=== PATIENT | male | born 1990 | race Caucasian/White ===

== ENCOUNTER 2018-11-28 19:01 | Inpatient (IN) | payer OTHER ==
[2018-11-28 20:21] VITALS: BMI 23.9
--- NOTE | 2018-11-28 22:56 | HP ---
COWS - Scale Resting Pulse: 0= NE 80 or Below Sweatin=Flushed/Facial Moisture Restless Observation: 1= Difficult to Sit Still Pupil Size: 1= Pupils >than Normal Bone or Joint Aches: 2= Severe Diffuse Aches Runny Nose/ Eye Tearin= Runny Nose/Eyes GI Upset > 30mins: 1= Stomach Cramp Tremor Observation: 2= Slight Tremor Visible Yawning Observation: 1= 1-2x During Session Anxiety or Irritability: 4=Extreme Anxiety Goose Flesh Skin: 3=Piloerection COWS Score: 19 CIWA Score Nausea/Vomitin Muscle Tremors: 4-Moderate,w/Arms Extend Anxiety: 3 Agitation: 3 Paroxysmal Sweats: 3 Orientation: 0-Oriented Tacttile Disturbances: 0-None Auditory Disturbances: 0-None Visual Disturbances: 2-Mild Sensitivity Headache: 3-Moderate CIWA-Ar Total Score: 20 - Admission Criteria [facility] Guidelines: Admission for Medically Managed Detox: Requires at least one of the followin. CIWA greater than 12 2. Seizures within the past 24 hours 3. Delirium tremens within the past 24 hours 4. Hallucinations within the past 24 hours 5. Acute intervention needed for co occurring medical disorder 6. Acute intervention needed for co occurring psychiatric disorder 7. Severe withdrawal that cannot be handled at a lower level of care (continued vomiting, continued diarrhea, abnormal vital signs) requiring intravenous medication and/or fluids 8. Admission ROS [facility] Chief Complaint: Alcohol and heroin withdrawal symptoms Allergies/Adverse Reactions: Allergies Allergy/AdvReac Type Severity Reaction Status Date / Time No Known Allergies Allergy Verified 11/28/18 20:11 History of Present Illness: 28 years old male with 15 years of alcohol and heroin dependence is seeking admission to detox. Patient has been to multiple detox, last at [facility]. He has medically history of X linked retinoschisis. He denies suiide attempt and suicidal ideation at this time. He reports intermittent blackouts and states that he had a blackout yesterday. Exam Limitations: Physical Impairment (legally blind in both eyes) - Ebola screening Have you traveled outside of the country in the last 21 days: No (N) Have you had contact with anyone from an Ebola affected area: No Do you have a fever: No - Review of Systems Constitutional: Chills, Malaise, Changes in sleep EENT: reports: Other (legally blind in both eyes) Respiratory: reports: No Symptoms reported Cardiac: reports: No Symptoms Reported GI: reports: Nausea, Poor Appetite, Poor Fluid Intake, Abdominal cramping : reports: No Symptoms Reported Musculoskeletal: reports: Back Pain Integumentary: reports: Dryness, Flushing Neuro: reports: Headache, Tremors Endocrine: reports: No Symptoms Reported Hematology: reports: No Symptoms Reported Psychiatric: reports: Mood/Affect Appropiate, Orientated x3 Other Systems: Reviewed and Negative Patient History - Patient Medical History Hx Anemia: No Hx Asthma: No Hx Chronic Obstructive Pulmonary Disease (COPD): No Hx Cancer: No Hx Cardiac Disorders: No Hx Congestive Heart Failure: No Hx Hypertension: No Hx Hypercholesterolemia: No Hx Pacemaker: No HX Cerebrovascular Accident: No Hx Seizures: No Hx Dementia: No Hx Diabetes: No Hx Gastrointestinal Disorders: No Hx Liver Disease: No Hx Genitourinary Disorders: No Hx Sexually Transmitted Disorders: No Hx Renal Disease (ESRD): No Hx Thyroid Disease: No Hx Human Immunodeficiency Virus (HIV): No (October 2018) Hx Hepatitis C: No Hx Depression: No Hx Suicide Attempt: No (Denies suicidal ideation at this time) Hx Bipolar Disorder: No Hx Schizophrenia: No - Patient Surgical History Past Surgical History: Yes Other Surgical History: EYE SURGERY 2003 & 2006 - PPD History Previous Implant?: Yes Documented Results: Negative w/o proof Implanted On Prior R Admission?: No PPD to be Administered?: Yes - Reproductive History Patient is a Female of Child Bearing Age (11 -55 yrs old): No (MALE) - Smoking Cessation Smoking history: Current every day smoker Have you smoked in the past 12 months: Yes Aproximately how many cigarettes per day: 20 Hx Chewing Tobacco Use: No Initiated information on smoking cessation: Yes 'Breaking Loose' booklet given: 11/28/18 - Substance & Tx. History Hx Alcohol Use: Yes Hx Substance Use: No Substance Use Type: Alcohol, Heroin Hx Substance Use Treatment: Yes ([facility]) - Substances abused Alcohol Substance route: Oral Frequency: Daily Amount used: 1/2 gallon of vodka/gin or sudhir Age of first use: 11 Date of last use: 11/27/18 Oxycontin Substance route: Oral Frequency: Daily Amount used: 10 (10mg)/day Age of first use: 16 Date of last use: 11/27/18 Family Disease History - Family Disease History Family History: Denies Admission Physical Exam [facility] - Vital Signs Vital Signs: Vital Signs - 24 hr 11/28/18 11/28/18 20:07 22:15 Temperature 97.0 F L 97.0 F L Pulse Rate 68 68 Respiratory 18 18 Rate Blood Pressure 106/66 106/66 - Physical General Appearance: Yes: Moderate Distress, Tremorous, Irritable, Anxious HEENTM: Yes: Within Normal Limits Respiratory: Yes: Lungs Clear, Normal Breath Sounds, No Respiratory Distress Neck: Yes: Supple Breast: Yes: Breast Exam Deferred Cardiology: Yes: Regular Rhythm, Regular Rate Abdominal: Yes: Normal Bowel Sounds Genitourinary: Yes: Within Normal Limits Back: Yes: Normal Inspection Musculoskeletal: Yes: Back pain Extremities: Yes: Tremors Neurological: Yes: Within Normal Limits Integumentary: Yes: Warm Lymphatic: Yes: Within Normal Limits Cleared for Admission [facility] - Detox or Rehab [facility] Level of Care: Medically Managed Detox Regimen/Protocol: Methadone/Librium Breathalyzer - Breathalyzer Breathalyzer: 0 Urine Drug Screen - Test Device Lot number: [id number] Expiration date: 08/16/20 - Control Is test valid?: Yes - Results Drug screen NEGATIVE: No Urine drug screen results: THC-Marijuana, MET-Methamphetamine, OXY-Oxycodone Inpatient Rehab Admission - Rehab Decision to Admit Inpatient rehab admission?: No
[2018-11-28] MEDS ORDERED: MAGNESIUM CITRATE 300 ML BOTTLE PO PRN (23:17)
[2018-11-28] MEDS ORDERED: MAG HYDROX/AL HYDROX/SIMETH 30 ML UNIT-DOSE CUP PO PRN (23:17)
[2018-11-28] MEDS ORDERED: chlordiazePOXIDE HCL 10 MG CAPSULE PO PRN (23:17)
[2018-11-28] MEDS ORDERED: MELATONIN 5 MG TABLETS PO PRN (23:17)
[2018-11-28] MEDS ORDERED: cloNIDine HCL 0.1 MG TABLET PO PRN (23:17)
[2018-11-28] MEDS ORDERED: MENTHOL/PHENOL 1 EACH UD MM PRN (23:17)
[2018-11-28] MEDS ORDERED: MAGNESIUM HYDROX 2400MG/30ML ORAL SUSPENSION 30 ML CUP PO PRN (23:17)
[2018-11-28] MEDS ORDERED: BISMUTH SUBSALICYLATE 524 MG/30 ML UD PO PRN (23:17)
[2018-11-28] MEDS ORDERED: METHADONE HCL 10 MG TABLET (FOR DETOX USE ONLY) PO ONE (23:17)
[2018-11-28] MEDS ORDERED: ACETAMINOPHEN 325 MG TABLET (FP) PO PRN ×2 (23:17)
[2018-11-28] MEDS ORDERED: IBUPROFEN 400 MG TABLET (FP) PO PRN (23:17)
[2018-11-29] MEDS: chlordiazePOXIDE HCL 25 MG CAPSULE PO SCH ×3 (00:20→12:42)
[2018-11-29] MEDS ORDERED: METHADONE HCL 10 MG TABLET PO ONE (00:54)
[2018-11-29] MEDS ORDERED: METHADONE HCL 5 MG TABLET (FOR DETOX USE ONLY) PO ONE (10:00)
[2018-11-29] MEDS: NICOTINE 14 MG/24 HOURS TOPICAL PATCH TD SCH (10:59)
[2018-11-29] MEDS: PRENATAL VITAMINS W/ FOLIC ACID TABLET (FP) PO SCH (11:01)
[2018-11-29] MEDS: NICOTINE POLACRILEX 4 MG GUM BUC PRN ×6 (11:03→23:55)
[2018-11-29 13:09] LABS: ALBUMIN 3.2 g/dl (3.4-5.0); BILIRUBIN,TOTAL 0.6 mg/dL (0.2-1); BLOOD UREA NITROGEN 13.9 mg/dL (7-18); CALCIUM 8.5 mg/dL (8.5-10.1); CREATININE 1.2 mg/dL (0.55-1.3); POTASSIUM 4.6 mmol/L (3.5-5.1); TOT PROT 5.5 g/dl (6.4-8.2)
[2018-11-29] MEDS: CLOTRIMAZOLE 1% CREAM 15 GM TUBE TP SCH ×3 (13:20→22:34)
[2018-11-29] MEDS ORDERED: LORazepam 0.5 MG TABLET PO PRN (13:33)
--- NOTE | 2018-11-29 13:41 | CONSULT ---
[facility] Psychiatric Consult - Data Date of interview: 11/29/18 Admission source: [facility] Identifying data: First admission to [facility] for this 28 y/o male self-referred for detoxification (alcohol, cannabis, heroin). Examined at [address] [place] [address]. Patient is single, a father of one, homeless, unemployed and supported on welfare. Substance Abuse History: Confirmed by the patient in this interview. Details in [facility] report as follows : Smoking history: Current every day smoker. Have you smoked in the past 12 months: Yes. Aproximately how many cigarettes per day: 20. Hx Chewing Tobacco Use: No. Initiated information on smoking cessation: Yes. 'Breaking Loose' booklet given: 11/28/18. - Substance & Tx. History. Hx Alcohol Use: Yes. Hx Substance Use: No. Substance Use Type: Alcohol, Heroin. Hx Substance Use Treatment: Yes ([facility]). - Substances abused. Alcohol. Substance route: Oral. Frequency: Daily. Amount used: 1/2 gallon of vodka/gin or sudhir. Age of first use: 11. Date of last use: 11/27/18. Oxycontin. Substance route: Oral. Frequency: Daily. Amount used: 10 (10mg)/day. Age of first use: 16. Date of last use: 11/27/18 Medical History: Patient is legally blind. Psychiatric History: No reported history of psychiatric hospitalizations. Mr Guerra admits to having relapsed after more than six months of sobriety. Patient sees a psychiatrist at the [facility] in [facility] (medicated with prozac ( dose not recalled ) + gabapentin 600 mg/tid + wellbutrin SR 150 mg/day + trazodone 100 mg/hs). Diagnosed with Antisocial Personality Disorder, CINDA and PTSD. Patient denies history of suicide attempts. Physical/Sexual Abuse/Trauma History: Patient denies history of abuse. Additional Comment: Urine drug screen results: THC-Marijuana, MET- Methamphetamine, OXY-Oxycodone. Noted. Mental Status Exam - Mental Status Exam Alert and Oriented to: Time, Place, Person Cognitive Function: Good Patient Appearance: Well Groomed Mood: Withdrawn, Hopeful Affect: Appropriate, Normal Range Patient Behavior: Fatigued, Cooperative Speech Pattern: Clear Voice Loudness: Normal Thought Process: Goal Oriented Thought Disorder: Not Present Hallucinations: Denies Suicidal Ideation: Denies Homicidal Ideation: Denies Insight/Judgement: Poor Sleep: Poorly, Difficulty falling asleep Appetite: Good Muscle strength/Tone: Normal Gait/Station: Normal Psychiatric Findings - Problem List ([place] 1, 2,3) (1) Alcohol use disorder Current Visit: Yes Status: Chronic (2) Cannabis use disorder, mild, abuse Current Visit: Yes Status: Chronic (3) Opioid use disorder Current Visit: Yes Status: Chronic (4) Nicotine dependence Current Visit: Yes Status: Chronic (5) Substance induced mood disorder Current Visit: Yes Status: Chronic (6) History of posttraumatic stress disorder (PTSD) Current Visit: Yes Status: Chronic (7) History of anxiety disorder Current Visit: Yes Status: Chronic (8) Insomnia Current Visit: Yes Status: Chronic - Initial Treatment Plan Initial Treatment Plan: Psychoeducation. Sleep hygiene. Detoxification. AA/NA meetings. Groups. Motivational counseling done in this session (attended by medical students /with patient's verbal permission). Support. Relapse prevention discussed with the patient. Medications : trazodone 100 mg po hs + gabapentin 300 mg po tid. Side effects/benefits discussed with patient. Mr Guerra declines to gat back on wellbutrin and fluoxetine. Made aware of risk of priapism. Verbal consent granted to MD. Toth.
[2018-11-29 13:49] LABS: HEMATOCRIT 37.9 % (35.4-49); HEMOGLOBIN 12.6 GM/dL (11.7-16.9); MCH 28.7 pg (25.7-33.7); MCHC 33.2 g/dl (32.0-35.9); MEAN CELL VOLUME 86.6 fl (80-96); MEAN PLT VOLUME 8.3 fl (7.5-11.1); PLATELET COUNT 186 K/MM3 (134-434); RBC 4.38 M/mm3 (4.00-5.60); RDW 15.4 % (11.9-15.9); WHITE BLOOD COUNT 7.5 K/mm3 (4.0-10.0)
--- NOTE | 2018-11-29 14:00 | PN ---
S CIWA - CIWA Score Nausea/Vomitin-Mild Nausea/No Vomiting Muscle Tremors: 3 Anxiety: 3 Agitation: 4-Moderately Restless Paroxysmal Sweats: 2 Orientation: 0-Oriented Tacttile Disturbances: 1-Very Mild Itch/Numbness Auditory Disturbances: 0-None Visual Disturbances: 0-None Headache: 1-Very Mild CIWA-Ar Total Score: 15 BHS COWS - Scale Resting Pulse: 0= [place] 80 or Below Sweatin= Chills/Flushing Restless Observation: 0= Sits Still Pupil Size: 1= Pupils >than Normal Bone or Joint Aches: 2= Severe Diffuse Aches Runny Nose/ Eye Tearin= Nasal Congestion GI Upset > 30mins: 2= Nausea/Diarrhea Tremor Observation of Outstretched Hands: 2= Slight Tremor Visible Yawning Observation: 1= 1-2x During Session Anxiety or Irritability: 1=Feels Anxious/Irritable Goose Flesh Skin: 3=Piloerection COWS Score: 14 S Progress Note (SOAP) Subjective: 28 years old male admitted on 11/28/18 for acute alcohol and opiate withdrawal sx management prefers Ativan as detox regimen "not doing well with labium" discontinue labium protocol begin Ativan detox regimen itchy groin area bilaterally puristic circular erythema patches spreading along groin bilaterally tinea corpus clotrimazole cream Objective: 11/29/18 14:28 Vital Signs Temperature 99.3 F 11/29/18 13:54 Pulse Rate 62 11/29/18 13:54 Respiratory Rate 18 11/29/18 13:54 Blood Pressure 119/72 11/29/18 13:54 O2 Sat by Pulse Oximetry (%) Laboratory Last Values WBC 7.5 K/mm3 (4.0-10.0) 11/29/18 07:30 RBC 4.38 M/mm3 (4.00-5.60) 11/29/18 07:30 Hgb 12.6 GM/dL (11.7-16.9) 11/29/18 07:30 Hct 37.9 % (35.4-49) 11/29/18 07:30 MCV 86.6 fl (80-96) 11/29/18 07:30 MCH 28.7 pg (25.7-33.7) 11/29/18 07:30 MCHC 33.2 g/dl (32.0-35.9) 11/29/18 07:30 RDW 15.4 % (11.9-15.9) 11/29/18 07:30 Plt Count 186 K/MM3 (134-434) 11/29/18 07:30 MPV 8.3 fl (7.5-11.1) 11/29/18 07:30 Sodium 143 mmol/L (136-145) 11/29/18 07:30 Potassium 4.6 mmol/L (3.5-5.1) 11/29/18 07:30 Chloride 107 mmol/L (98-107) 11/29/18 07:30 Carbon Dioxide 32 mmol/L (21-32) 11/29/18 07:30 Anion Gap 4 MMOL/L (8-16) L 11/29/18 07:30 BUN 13.9 mg/dL (7-18) 11/29/18 07:30 Creatinine 1.2 mg/dL (0.55-1.3) 11/29/18 07:30 Est GFR (CKD-EPI)AfAm 94.14 11/29/18 07:30 Est GFR (CKD-EPI)NonAf 81.23 11/29/18 07:30 Random Glucose 85 mg/dL (74-106) 11/29/18 07:30 Calcium 8.5 mg/dL (8.5-10.1) 11/29/18 07:30 Total Bilirubin 0.6 mg/dL (0.2-1) 11/29/18 07:30 AST 22 U/L (15-37) 11/29/18 07:30 ALT 33 U/L (13-61) 11/29/18 07:30 Alkaline Phosphatase 38 U/L (45-117) L 11/29/18 07:30 Total Protein 5.5 g/dl (6.4-8.2) L 11/29/18 07:30 Albumin 3.2 g/dl (3.4-5.0) L 11/29/18 07:30 RPR Titer Nonreactive (NONREACTIVE) 11/29/18 07:30 lab noted Assessment: 11/29/18 14:28 alcohol and opiate withdrawal sx Plan: continue ativan and methadone detox regimen
[2018-11-29] MEDS: hydrOXYzine HCL 25 MG TABLET (FP) PO PRN (15:11)
[2018-11-29] MEDS: LORazepam 0.5 MG TABLET PO SCH ×2 (16:53→22:03)
[2018-11-29] MEDS: traZODone HCL 100 MG TABLET (FP) PO SCH (22:03)
[2018-11-29] MEDS: THIAMINE HCL 100 MG TABLET (FP) PO SCH (22:03)
[2018-11-29] MEDS: GABAPENTIN 300 MG CAPSULE (FP) PO SCH (22:03)
[2018-11-30] MEDS: LORazepam 0.5 MG TABLET PO PRN ×3 (02:17→18:06)
[2018-11-30] MEDS: NICOTINE POLACRILEX 4 MG GUM BUC PRN ×7 (02:17→21:52)
[2018-11-30] MEDS ORDERED: chlordiazePOXIDE 5 MG CAPSULE PO SCH (05:00)
[2018-11-30] MEDS: GABAPENTIN 300 MG CAPSULE (FP) PO SCH ×3 (05:33→22:08)
[2018-11-30] MEDS: LORazepam 0.5 MG TABLET PO SCH ×3 (05:33→22:08)
[2018-11-30] MEDS: CLOTRIMAZOLE 1% CREAM 15 GM TUBE TP SCH ×3 (06:16→22:08)
[2018-11-30] MEDS ORDERED: METHADONE HCL 10 MG TABLET (FOR DETOX USE ONLY) PO ONE (10:00)
[2018-11-30] MEDS: METHOCARBAMOL 500 MG TABLET PO PRN ×2 (10:16→22:09)
[2018-11-30] MEDS: NICOTINE 14 MG/24 HOURS TOPICAL PATCH TD SCH (10:16)
[2018-11-30] MEDS: PRENATAL VITAMINS W/ FOLIC ACID TABLET (FP) PO SCH (10:16)
--- NOTE | 2018-11-30 12:12 | EKG ---
Test Reason : Blood Pressure : / mmHG Vent. Rate : 068 BPM Atrial Rate : 068 BPM P-R Int : 124 ms QRS Dur : 082 ms QT Int : 382 ms P-R-T Axes : -21 090 040 degrees QTc Int : 406 ms NORMAL SINUS RHYTHM RIGHTWARD AXIS BORDERLINE ECG NO PREVIOUS ECGS AVAILABLE Confirmed by EDVIN CALERO, KALEIGH ([id number]) on 11/30/2018 12:11:34 PM Referred By: Patricia Baugh Confirmed By:KALEIGH PARDO MD
--- NOTE | 2018-11-30 13:16 | PN ---
Ritu Progress Note Note: Psychiatry Attending's note : Met with patient. Noted as angry, hostile and argumentative. Firm limits set by this teletypewriter operator. Mr Guerra wants switch to wellbutrin (immediate release). Specifically requests to be on 75 mg po twice a day. Ordered : wellbutrin 75 mg po bid @ 7 AM + 1 PM. As per patient's preferred schedule. Side effects/benefits discussed.
--- NOTE | 2018-11-30 13:43 | PN ---
[facility] CIWA - CIWA Score Nausea/Vomitin-No Nausea/No Vomiting Muscle Tremors: None Anxiety: 5 Agitation: 4-Moderately Restless Paroxysmal Sweats: 3 Orientation: 0-Oriented Tacttile Disturbances: 3-Moderate Itch/Numb/Burn Auditory Disturbances: 0-None Visual Disturbances: 1-Very Mild Sensitivity Headache: 0-None Present CIWA-Ar Total Score: 16 BHS COWS - Scale Resting Pulse: 1= OR 81-100 Sweatin= Chills/Flushing Restless Observation: 1= Difficult to Sit Still Pupil Size: 0= Normal to Room Light Bone or Joint Aches: 2= Severe Diffuse Aches Runny Nose/ Eye Tearin= None GI Upset > 30mins: 0= None Tremor Observation of Outstretched Hands: 0= None Yawning Observation: 1= 1-2x During Session Anxiety or Irritability: 4=Extreme Anxiety Goose Flesh Skin: 3=Piloerection COWS Score: 13 S Progress Note (SOAP) Subjective: Interrupted Sleep, Sweating, Anxious, Body Aches. Objective: PATIENT A & O X 3, OBSERVED AMBULATING ON UNIT UNASSISTED. IN NO ACUTE DISTRESS. 11/30/18 13:43 Vital Signs Temperature 97.7 F 11/30/18 13:36 Pulse Rate 91 H 11/30/18 13:36 Respiratory Rate 18 11/30/18 13:36 Blood Pressure 142/75 11/30/18 13:36 O2 Sat by Pulse Oximetry (%) Laboratory Tests 11/29/18 11/29/18 11/29/18 07:30 07:30 07:30 WBC 7.5 RBC 4.38 Hgb 12.6 Hct 37.9 MCV 86.6 MCH 28.7 MCHC 33.2 RDW 15.4 Plt Count 186 MPV 8.3 Sodium 143 Potassium 4.6 Chloride 107 Carbon Dioxide 32 Anion Gap 4 L BUN 13.9 Creatinine 1.2 Est GFR (CKD-EPI)AfAm 94.14 Est GFR (CKD-EPI)NonAf 81.23 Random Glucose 85 Calcium 8.5 Total Bilirubin 0.6 AST 22 ALT 33 Alkaline Phosphatase 38 L Total Protein 5.5 L Albumin 3.2 L RPR Titer Nonreactive LABS NOTED. RESULTS OF DETOX ADMISSION QFT /TB TEST PENDING. 11/30/18 13:45 Assessment: 11/30/18 13:45 WITHDRAWAL SYMPTOMS. Plan: CONTINUE DETOX.
[2018-11-30] MEDS ORDERED: buPROPion HCL 100 MG TABLET PO SCH (15:00)
[2018-11-30] MEDS ORDERED: buPROPion HCL 75 MG TABLET PO ONE (17:00)
[2018-11-30] MEDS ORDERED: buPROPion HCL 100 MG TABLET PO ONE (17:00)
[2018-11-30] MEDS ORDERED: buPROPion HCL 75 MG TABLET PO SCH ×2 (18:00→22:00)
[2018-11-30] MEDS: traZODone HCL 100 MG TABLET (FP) PO SCH (22:07)
[2018-11-30] MEDS: THIAMINE HCL 100 MG TABLET (FP) PO SCH (22:08)
[2018-12-01] MEDS ORDERED: chlordiazePOXIDE HCL 10 MG CAPSULE PO PRN
[2018-12-01] MEDS: NICOTINE POLACRILEX 4 MG GUM BUC PRN ×7 (00:30→23:49)
[2018-12-01] MEDS: LORazepam 0.5 MG TABLET PO PRN ×3 (00:32→22:25)
[2018-12-01] MEDS ORDERED: chlordiazePOXIDE HCL 10 MG CAPSULE PO SCH (05:00)
[2018-12-01] MEDS: LORazepam 0.5 MG TABLET PO SCH ×2 (05:23→16:45)
[2018-12-01] MEDS: GABAPENTIN 300 MG CAPSULE (FP) PO SCH ×3 (05:23→22:24)
[2018-12-01] MEDS: METHOCARBAMOL 500 MG TABLET PO PRN (05:26)
[2018-12-01] MEDS ORDERED: METHADONE HCL 5 MG TABLET (FOR DETOX USE ONLY) PO ONE (06:00)
[2018-12-01] MEDS: CLOTRIMAZOLE 1% CREAM 15 GM TUBE TP SCH ×3 (06:10→22:28)
[2018-12-01] MEDS: buPROPion HCL 75 MG TABLET PO SCH ×2 (06:10→13:16)
[2018-12-01] MEDS: PRENATAL VITAMINS W/ FOLIC ACID TABLET (FP) PO SCH (10:41)
[2018-12-01] MEDS: NICOTINE 14 MG/24 HOURS TOPICAL PATCH TD SCH (10:42)
[2018-12-01] MEDS: hydrOXYzine HCL 25 MG TABLET (FP) PO PRN ×3 (10:44→22:24)
--- NOTE | 2018-12-01 14:02 | PN ---
[facility] CI[facility] - CIWA Score Nausea/Vomitin-No Nausea/No Vomiting Muscle Tremors: None Anxiety: 4-Mod. Anxious/Guarded Agitation: 3 Paroxysmal Sweats: No Perspiration Orientation: 0-Oriented Tacttile Disturbances: 2-Mild Itch/Numbness/Burn Auditory Disturbances: 0-None Visual Disturbances: 1-Very Mild Sensitivity Headache: 0-None Present CIWA-Ar Total Score: 10 S COWS - Scale Resting Pulse: 1= [place] 81-100 Sweatin= Chills/Flushing Restless Observation: 1= Difficult to Sit Still Pupil Size: 0= Normal to Room Light Bone or Joint Aches: 2= Severe Diffuse Aches Runny Nose/ Eye Tearin= None GI Upset > 30mins: 0= None Tremor Observation of Outstretched Hands: 0= None Yawning Observation: 1= 1-2x During Session Anxiety or Irritability: 4=Extreme Anxiety Goose Flesh Skin: 0=Smooth Skin COWS Score: 10 S Progress Note (SOAP) Subjective: Interrupted Sleep, Body Aches, Anxious, Sweating. Objective: PATIENT A & O X 3, OBSERVED AMBULATING ON UNIT UNASSISTED. IN NO ACUTE DISTRESS. 12/01/18 13:59 Vital Signs Temperature 98.7 F 12/01/18 13:47 Pulse Rate 68 12/01/18 13:47 Respiratory Rate 18 12/01/18 13:47 Blood Pressure 126/79 12/01/18 13:47 O2 Sat by Pulse Oximetry (%) Laboratory Tests 11/29/18 11/29/18 11/29/18 07:30 07:30 07:30 WBC 7.5 RBC 4.38 Hgb 12.6 Hct 37.9 MCV 86.6 MCH 28.7 MCHC 33.2 RDW 15.4 Plt Count 186 MPV 8.3 Sodium 143 Potassium 4.6 Chloride 107 Carbon Dioxide 32 Anion Gap 4 L BUN 13.9 Creatinine 1.2 Est GFR (CKD-EPI)AfAm 94.14 Est GFR (CKD-EPI)NonAf 81.23 Random Glucose 85 Calcium 8.5 Total Bilirubin 0.6 AST 22 ALT 33 Alkaline Phosphatase 38 L Total Protein 5.5 L Albumin 3.2 L RPR Titer Nonreactive LABS NOTED. RESULTS OF DETOX ADMISSION QFT /TB TEST PENDING. 12/01/18 14:00 Assessment: 12/01/18 14:00 WITHDRAWAL SYMPTOMS. Plan: CONTINUE DETOX. PATIENT SCHEDULED FOR D/C FROM DETOX UNIT TOMORROW.
[2018-12-01] MEDS: PANTOPRAZOLE 40 MG TABLET (FP) PO SCH (15:43)
[2018-12-01] MEDS: CYCLOBENZAPRINE HCL 10 MG TABLET (FP) PO PRN ×2 (16:49→23:49)
[2018-12-01] MEDS: traZODone HCL 100 MG TABLET (FP) PO SCH (22:24)
[2018-12-01] MEDS: THIAMINE HCL 100 MG TABLET (FP) PO SCH (22:24)
[2018-12-01] MEDS ORDERED: ONDANSETRON *ODT* 4 MG TABLET SL ONE (22:47)
[2018-12-01] MEDS ORDERED: traZODone HCL 50 MG TABLET (FP) PO ONE (23:45)
[2018-12-01] MEDS ORDERED: LORazepam 0.5 MG TABLET PO ONE (23:45)
[2018-12-01] MEDS ORDERED: GABAPENTIN 100 MG CAPSULE (FP) PO ONE (23:45)
[2018-12-02] MEDS ORDERED: LORazepam 0.5 MG TABLET PO ONE (05:00)
[2018-12-02] MEDS ORDERED: chlordiazePOXIDE HCL 10 MG CAPSULE PO ONE (05:00)
[2018-12-02] MEDS: GABAPENTIN 300 MG CAPSULE (FP) PO SCH (05:39)
[2018-12-02] MEDS: CLOTRIMAZOLE 1% CREAM 15 GM TUBE TP SCH (06:28)
[2018-12-02] MEDS: buPROPion HCL 75 MG TABLET PO SCH (07:13)
[2018-12-02 09:23] VITALS: BP 104/60; PULSE 63; TEMP 97.9
[2018-12-02] MEDS: CYCLOBENZAPRINE HCL 10 MG TABLET (FP) PO PRN (11:00)
[2018-12-02] MEDS: PANTOPRAZOLE 40 MG TABLET (FP) PO SCH (11:00)
[2018-12-02] MEDS: NICOTINE 14 MG/24 HOURS TOPICAL PATCH TD SCH (11:01)
[2018-12-02] MEDS: PRENATAL VITAMINS W/ FOLIC ACID TABLET (FP) PO SCH (11:01)
[2018-12-02] MEDS ORDERED: LOPERAMIDE HCL 2 MG CAPSULE PO ONE (11:32)
--- NOTE | 2018-12-02 17:17 | DS ---
[facility] Detox Discharge Summary Admission Date: 11/28/18 Discharge Date: 12/02/18 - History Present History: Alcohol Dependence, Opioid Dependence Additional Comments: PATIENT GOING TO [facility] ([place], [place] FOR AFTERCARE. PATIENT WAS DISCHARGED FROM DETOX UNIT IN STABLE MEDICAL CONDITION. Pertinent Past History: Legally Blind in Bilateral Eyes, History Of Anxiety Disorder, Nicotine Dependence, History Of Post-Traumatic Stress Disorder, Insomnia. - Physical Exam Results Vital Signs: Vital Signs Temperature 97.9 F 12/02/18 09:22 Pulse Rate 63 12/02/18 09:22 Respiratory Rate 18 12/02/18 09:22 Blood Pressure 104/60 12/02/18 09:22 O2 Sat by Pulse Oximetry (%) Pertinent Admission Physical Exam Findings: WITHDRAWAL SYMPTOMS. Laboratory Tests 11/29/18 11/29/18 11/29/18 07:30 07:30 07:30 WBC 7.5 RBC 4.38 Hgb 12.6 Hct 37.9 MCV 86.6 MCH 28.7 MCHC 33.2 RDW 15.4 Plt Count 186 MPV 8.3 Sodium 143 Potassium 4.6 Chloride 107 Carbon Dioxide 32 Anion Gap 4 L BUN 13.9 Creatinine 1.2 Est GFR (CKD-EPI)AfAm 94.14 Est GFR (CKD-EPI)NonAf 81.23 Random Glucose 85 Calcium 8.5 Total Bilirubin 0.6 AST 22 ALT 33 Alkaline Phosphatase 38 L Total Protein 5.5 L Albumin 3.2 L RPR Titer Nonreactive TB (QFT) Incubation TB Test (QFT) Nil TB Test (QFT) Mitogen TB Test (QFT) Antigen TB Test (QFT) TB Positive Criteria 11/29/18 07:30 WBC RBC Hgb Hct MCV MCH MCHC RDW Plt Count MPV Sodium Potassium Chloride Carbon Dioxide Anion Gap BUN Creatinine Est GFR (CKD-EPI)AfAm Est GFR (CKD-EPI)NonAf Random Glucose Calcium Total Bilirubin AST ALT Alkaline Phosphatase Total Protein Albumin RPR Titer TB (QFT) Incubation TB Test (QFT) Nil 0.08 TB Test (QFT) Mitogen >10.00 TB Test (QFT) Antigen 0.08 TB Test (QFT) Negative TB Positive Criteria LABS NOTED. - Treatment Hospital Course: Detox Protocol Followed, Detoxed Safely, Responded well, Discharged Condition Good, Rehab Referral Accepted Patient has Accepted a Rehab Referral to: [facility] ([place], [place]). - Medication Discharge Medications: Ambulatory Orders Bupropion HCl [Wellbutrin Sr] 150 mg PO DAILY 11/28/18 Gabapentin 300 mg PO TID 11/28/18 Trazodone HCl 150 mg PO HS 11/28/18 - Diagnosis (1) Alcohol use disorder Status: Acute (2) Cannabis use disorder, mild, abuse Status: Chronic (3) History of anxiety disorder Status: Chronic (4) History of posttraumatic stress disorder (PTSD) Status: Chronic (5) Insomnia Status: Chronic Qualifiers: Insomnia type: unspecified Qualified Code(s): G47.00 - Insomnia, unspecified (6) Nicotine dependence Status: Chronic Qualifiers: Nicotine product type: cigarettes Substance use status: uncomplicated Qualified Code(s): F17.210 - Nicotine dependence, cigarettes, uncomplicated (7) Opioid use disorder Status: Chronic (8) Substance induced mood disorder Status: Chronic - AMA Did Patient Leave Against Medical Advice: No BHS COWS - Scale Resting Pulse: 0= [place] 80 or Below Sweatin= No chills or Flushing Restless Observation: 1= Difficult to Sit Still Pupil Size: 0= Normal to Room Light Bone or Joint Aches: 1= Mild Discomfort Runny Nose/ Eye Tearin= None GI Upset > 30mins: 0= None Tremor Observation of Outstretched Hands: 0= None Yawning Observation: 1= 1-2x During Session Anxiety or Irritability: 2=Irritable/Anxious Goose Flesh Skin: 0=Smooth Skin COWS Score: 5 BHS CIWA - CIWA Score Nausea/Vomitin-No Nausea/No Vomiting Muscle Tremors: None Anxiety: 3 Agitation: 1-Slight > Activity Paroxysmal Sweats: No Perspiration Orientation: 0-Oriented Tacttile Disturbances: 0-None Auditory Disturbances: 0-None Visual Disturbances: 0-None Headache: 0-None Present CIWA-Ar Total Score: 4
== END 2018-12-02 11:33 | disposition home or self-care (01) | DRG 773 ==
LOC: YASAS 19:01 → Y3N 23:35
PROVIDERS: ADMIT Surgery; ATTEND Surgery
PROC: HZ2ZZZZ Detoxification Services for Substance Abuse Treatment (ICD-10-PCS; principal; 2018-11-28)
DX: F11.23 Opioid dependence with withdrawal (principal); F10.230 Alcohol dependence with withdrawal, uncomplicated; F12.20 Cannabis dependence, uncomplicated; F17.210 Nicotine dependence, cigarettes, uncomplicated; F19.24 Other psychoactive substance dependence with psychoactive substance-induced mood disorder; G47.00 Insomnia, unspecified; H54.8 Legal blindness, as defined in USA
CPT/HCPCS: 36415; 80053; 85027; 86480; 86593; 93005; 93010; Q0162